=== PATIENT | male | born 1990 | race African-American/Black ===

== ENCOUNTER 2017-09-11 11:13 | Emergency (ER) | payer SELFPAY ==
[2017-09-11] MEDS: ALBUTEROL SULFATE 2.5 MG/3 ML NEBU. NEB (12:17)
== END 2017-09-11 13:00 | disposition home or self-care (01) ==
LOC: ER 11:13
DX: J45.901 Unspecified asthma with (acute) exacerbation (principal)
CPT/HCPCS: 94640; 99283; J7613

== ENCOUNTER 2020-02-23 05:12 | Emergency (ER) | payer SELFPAY ==
[~2020-02-23] VITALS: Ht 180.3 cm; Wt 63.6 kg
[~2020-02-23 05:12] MED LIST: ALBU2.5V8 INH; BENZ100C PO; FLUT1DIS3 IH; PRED50TA PO
[2020-02-23] MEDS ORDERED: NEOMY/BACITR/POLYMYXIN OINT PACKET. TP ONE (05:30)
[2020-02-23] MEDS ORDERED: LIDOCAINE 2%/EPI 1:100,000 20 ML VIAL. INJ ONE (05:30)
--- NOTE | 2020-02-23 05:56 | RAD ---
PQRS Compliance Statement: One or more of the following individualized dose reduction techniques were utilized for this examinat ion: 1. Automated exposure control 2. Adjustment of the mA and/or kV according to patient size 3. Use of iterative reconstruction technique CT head , maxillofacial and cervical spine without contrast 02/23/2020 5:19 AM INDICATION: Pain status post fall with facial trauma COMPARISON: None available TECHNIQUE: Multiple axial CT images of the head were obtained from skull base through the vertex with out intravenous contrast. Multiple axial CT images of the cervical spine and maxillofacial structures were obtained without intravenous contrast. Coronal and sagittal reformats are provided. FINDINGS: Head and maxillofacial: Ventricles, sulci and basal cisterns are within normal limits. There is no hydrocephalus. Ross-white matter differentiation is normal. There is no acute intracranial hemorrhage. There is no mass, mass e ffect or midline shift. Posterior fossa is normal in appearance. Osseous orbits are intact. Globes are spherical and contour. There is no lens dislocation. Extraocula r muscles are intact. No intraconal or extraconal mass is identified. Skull base is intact. There is a laceration along the nasal bridge with associated soft tissue swelling. Nasal bones are in tact. Nasal septum is predominantly midline. Paranasal sinuses are well aerated. No acute fracture of the paranasal sinuses is identified. Pterygoid plates are intact. Mild soft tissue swelling along th e forehead. Temporomandibular joints are well aligned. Mastoid air cells are well aerated. Middle ear cavities ar e well aerated. Visualized nasopharynx and oropharynx are intact. Maxilla and mandible are intact. Visualized dentition appear normal. Cervical spine: Alignment of the cervical spine is normal. Skull base is intact. Craniocervical junction is normal in appearance. Atlantoaxial articulation is normal. Vertebral body heights are maintained without evidence for acute fracture. Facet joints are within normal limits. No significant osseous neural foraminal stenosis. No significa nt osseous spinal canal stenosis. Transverse foramen are intact. There is no prevertebral soft tissue swelling. Thyroid gland is normal in appearance. Visualized port ions of the lung apices are normal without evidence for suspicious pulmonary nodule or infiltrate. IMPRESSION: 1. No acute intracranial hemorrhage. 2. No acute fracture of the maxillofacial structures. Soft tissue laceration along the nasal bridge o f the soft tissue swelling along the nasal bridge and forehead. 3. No acute fracture or malalignment of the cervical spine. Electronically signed by: Edita Littlejohn MD (02/23/2020 5:53 AM) [facility]BIE
--- NOTE | 2020-02-23 06:01 | PHYS DOC ---
Past Medical History Past Medical History: Asthma Past Medical History Limited secondary to alcohol intoxication Past Surgical History: No Surgical History Past Surgical History Limited secondary to alcohol intoxication Smoking Status: Current Every Day Smoker Additional Information: vape pen Alcohol Use: Occasionally Drug Use: None Social History Limited secondary to alcohol intoxication General Adult EDM: Chief Complaint: ALCOHOL INTOXICATION HPI: HPI: 29-year-old male presents via EMS with report of laceration to forehead which occurred after fall from standing position within the last hour. Patient reports EtOH abuse. Denies neck pain or back pain. Denies use of blood thinners. History of present illness limited secondary to alcohol intoxication. Review of Systems: Review of Systems: Constitutional: Denies fever or chills Musculoskeletal: Denies neck pain Integument: Reports laceration to forehead Neurologic: Denies headache, focal weakness or sensory changes Review of systems limited secondary to alcohol intoxication Current Medications: Current Medications Medications (Trade) Dose Ordered Sig/Minh Start Time Stop Time Status Last Admin Dose Admin Lidocaine/ Epinephrine (LIDOCAINE 2%-EPI 1:100,000 multi-dose) 20 ml 1X ONCE 02/23/20 05:30 02/23/20 05:31 DC 02/23/20 05:41 20 ML Neomycin/ Polymyxin/ Bacitracin (Triple Antibiotic Ointment) 1 pkt 1X ONCE 02/23/20 05:30 02/23/20 05:31 DC 02/23/20 05:41 1 PKT Allergies: Allergies: Allergies Coded Allergies Type Severity Reaction Last Updated Verified No Known Drug Allergies 08/27/15 No Physical Exam: PE: Constitutional: Well developed, well nourished, no acute distress, non-toxic appearance HENT: Normocephalic, 2.5 cm horizontal laceration to forehead just above bridge of nose Eyes: PERRL, EOMI, conjunctiva injected bilaterally, no discharge, horizontal nystagmus noted and looking to the right Neck: C-collar in place, supple Lungs & Thorax: No respiratory distress, equal chest rise and fall Abdomen: Soft, no tenderness; pelvis stable and nontender Skin: Warm, dry, no erythema, no rash Back: No tenderness, no CVA tenderness Extremities: No tenderness, ROM intact, no edema Neurologic: Alert and oriented, intoxicated, no focal deficits noted Psychologic: Affect normal, judgment normal Current Patient Data: Vital Signs: Vital Signs Date Time Temp Pulse Resp B/P (MAP) Pulse Ox O2 Delivery O2 Flow Rate FiO2 02/23/20 05:15 97.5 84 20 144/92 (109) 99 Room Air 97.5 EKG: EKG: [] Radiology/Procedures: Radiology/Procedures: PROCEDURE: CT HEAD, MAXILLOFACIAL, AND CERVICAL SPINE [facility] Compliance Statement: One or more of the following individualized dose reduction techniques were utilized for this examination: 1. Automated exposure control 2. Adjustment of the mA and/or kV according to patient size 3. Use of iterative reconstruction technique CT head , maxillofacial and cervical spine without contrast 02/23/2020 5:19 AM INDICATION: Pain status post fall with facial trauma COMPARISON: None available TECHNIQUE: Multiple axial CT images of the head were obtained from skull base through the vertex without intravenous contrast. Multiple axial CT images of the cervical spine and maxillofacial structures were obtained without intravenous contrast. Coronal and sagittal reformats are provided. FINDINGS: Head and maxillofacial: Ventricles, sulci and basal cisterns are within normal limits. There is no hydrocephalus. Ross-white matter differentiation is normal. There is no acute intracranial hemorrhage. There is no mass, mass effect or midline shift. Posterior fossa is normal in appearance. Osseous orbits are intact. Globes are spherical and contour. There is no lens dislocation. Extraocular muscles are intact. No intraconal or extraconal mass is identified. Skull base is intact. There is a laceration along the nasal bridge with associated soft tissue swelling. Nasal bones are intact. Nasal septum is predominantly midline. Paranasal sinuses are well aerated. No acute fracture of the paranasal sinuses is identified. Pterygoid plates are intact. Mild soft tissue swelling along the forehead. Temporomandibular joints are well aligned. Mastoid air cells are well aerated. Middle ear cavities are well aerated. Visualized nasopharynx and oropharynx are intact. Maxilla and mandible are intact. Visualized dentition appear normal. Cervical spine: Alignment of the cervical spine is normal. Skull base is intact. Craniocervical junction is normal in appearance. Atlantoaxial articulation is normal. Vertebral body heights are maintained without evidence for acute fracture. Facet joints are within normal limits. No significant osseous neural foraminal stenosis. No significant osseous spinal canal stenosis. Transverse foramen are i ntact. There is no prevertebral soft tissue swelling. Thyroid gland is normal in appearance. Visualized portions of the lung apices are normal without evidence for suspicious pulmonary nodule or infiltrate. IMPRESSION: 1. No acute intracranial hemorrhage. 2. No acute fracture of the maxillofacial structures. Soft tissue laceration along the nasal bridge of the soft tissue swelling along the nasal bridge and forehead. 3. No acute fracture or malalignment of the cervical spine. Electronically signed by: Edita Littlejohn MD (02/23/2020 5:53 AM) [facility] Course & Med Decision Making: Course & Med Decision Making Pertinent Imaging studies reviewed. (See chart for details) Patient presents via EMS status post mechanical fall with history of intoxication. Patient moving all extremities. No deformity noted. C-collar in place. Tetanus updated. CT head/cervical spine/maxillofacial without acute fracture or internal hemorrhage. Laceration repaired and dressed. C-collar cleared once clinically sober. Patient stable for discharge with outpatient follow-up with PCP. Discussed findings and plan with patient, who acknowledges understanding and agreement. Dragkaren Disclaimer: Tonio Disclaimer: This electronic medical record was generated, in whole or in part, using a voice recognition dictation system. Laceration/Wound Repair Laceration/Wound Repair : Wound Location: face Wound's Depth, Shape: linear Wound Length (cm): 2 (.5) Wound Explored: no foreign body removed Irrigated w/ Saline (ccs): 200 Anesthesia: Lidocaine w/ Epi (2%) Volume Anesthetic (ccs): 2 Wound Debrided: minimal Wound Repaired With: sutures Suture Size/Type: 6:0, nylon Number of Sutures: 5 Sterile Dressing Applied?: Yes Progress Verbal consent obtained. Time out performed. Hand hygiene utilized. Wound cleaned with ChloraPrep. Anesthesia obtained via a 30-gauge hypodermic needle with (1) mL's of lidocaine 2% with epinephrine. Copious irrigation performed. Wound well approximated with 6-0 Nylon x 5 simple interrupted sutures. Patient tolerated procedure well and without difficulty. Empiric antibiotic ointment applied prior to sterile dressing. Departure Departure Impression: Primary Impression: Fall Qualified Codes: W19.XXXA - Unspecified fall, initial encounter Additional Impressions: Facial laceration Qualified Codes: S01.81XA - Laceration without foreign body of other part of head, initial encounter Alcohol intoxication Qualified Codes: F10.920 - Alcohol use, unspecified with intoxication, u ncomplicated Disposition: 01 DC HOME SELF CARE/HOMELESS Condition: STABLE Referrals: NO PCP (PCP) Patient Instructions: Alcohol Intoxication, [id number], Laceration Care, Adult, [id number] Additional Instructions: Do not soak your wound. You may shower. Clean wound daily with soap and water. Change dressing 2 times daily. Use over the counter antibiotic ointment with each dressing change. Sutures need to be removed in 5 days. Present to your family doctor or local urgent care for removal. You may also present to the ED but it will be an additional visit/charge. After suture removal you may use Vitamin E ointment to soften the wound and prevent scarring. ASUNCION RANDALL DO Feb 23, 2020 06:00
[2020-02-23 06:06] VITALS: BP 128/82
[2020-02-23] MEDS ORDERED: DIPH,PERTUSS(ACELL),TET VAC/PF 0.5 ML SYRINGE. VAX IM ONE (06:30)
== END 2020-02-23 06:35 | disposition home or self-care (01) ==
LOC: ER 05:12
DX: S01.81XA Laceration without foreign body of other part of head, initial encounter (principal); F10.229 Alcohol dependence with intoxication, unspecified; R60.0 Localized edema; J45.909 Unspecified asthma, uncomplicated; F17.200 Nicotine dependence, unspecified, uncomplicated; W18.39XA Other fall on same level, initial encounter; Y93.89 Activity, other specified; Y92.89 Other specified places as the place of occurrence of the external cause; Y99.8 Other external cause status
CPT/HCPCS: 12011; 70450; 70486; 72125; 90471; 90715; 99285; J3490

== ENCOUNTER 2021-07-17 20:04 | Emergency (ER) | payer SELFPAY ==
[~2021-07-17] VITALS: Ht 157.5 cm; Wt 65.0 kg
[2021-07-17] MEDS ORDERED: DIPHTH,PERTUSS(ACELL),TET TOX 0.5 ML DISP.SYRIN. VAX IM ONE (21:15)
[2021-07-17] MEDS ORDERED: LIDOCAINE 1%/EPI 1:100,000 20 ML VIAL. INJ ONE (21:15)
[2021-07-17 22:00] VITALS: BP 132/78
[2021-07-17] MEDS ORDERED: CEPH500C PO (22:04)
--- NOTE | 2021-07-17 22:04 | PHYS DOC ---
Past Medical History Past Medical History: Asthma Past Surgical History: No Surgical History Smoking Status: Current Every Day Smoker Alcohol Use: Occasionally Drug Use: None General Adult EDM: Chief Complaint: LACERATION/AVULSION HPI: HPI: Patient is a 30 year old male who presents with lacerations to his right elbow. Patient states that he had some alcohol today, and when he went to go to bed, he hit his elbow on a broken glass on his bed stand. Patient has not had a tetanus vaccine ever in his lifetime. Patient denies any other injuries including head trauma. He has no other complaints at this time. Review of Systems: Review of Systems: ROS negative or noncontributory except as mentioned in HPI. Heart Score: C/O Chest Pain: No Current Medications: Current Medications Medications (Trade) Dose Ordered Sig/Minh Start Time Stop Time Status Last Admin Dose Admin Diphtheria/ Tetanus/Acell Pertussis (Boostrix) 0.5 ml ONCE ONCE 07/17/21 21:15 07/17/21 21:16 DC Lidocaine/ Epinephrine (LIDOCAINE 1%-EPI 1:100,000 Multi-Dose) 20 ml 1X ONCE 07/17/21 21:15 07/17/21 21:16 DC 07/17/21 21:10 20 ML Allergies: Allergies: Allergies Coded Allergies Type Severity Reaction Last Updated Verified No Known Drug Allergies 08/27/15 No Physical Exam: PE: Constitutional: Well developed, well nourished, no acute distress, non-toxic appearance. HENT: Normocephalic, atraumatic, bilateral external ears normal, nose normal. Eyes: EOMI, conjunctiva normal, no discharge. Neck: Normal range of motion, no tenderness, supple, no stridor. Skin: Approximately 3 cm laceration noted on the posterior aspect of the right forearm just distal to the elbow with a smaller 1.2 cm laceration at a perpendicular angle to the larger one, hemostasis not achieved on exam. Skin otherwise warm, dry, no erythema, no rash. Extremities: See above for laceration. Mild tenderness surrounding laceration. Extremities otherwise no tenderness, no cyanosis, no clubbing, ROM intact, no edema. Neurologic: Alert and oriented x4, normal motor function, normal sensory function, no focal deficits noted. Current Patient Data: Vital Signs: Vital Signs Date Time Temp Pulse Resp B/P (MAP) Pulse Ox O2 Delivery O2 Flow Rate FiO2 07/17/21 22:00 78 18 132/78 (96) 99 07/17/21 20:08 98.0 98 18 149/82 (104) 99 Room Air 98.0 Course & Med Decision Making: Course & Med Decision Making Pertinent Labs and Imaging studies reviewed. (See chart for details) Patient is a 30-year-old male who presents with 2 lacerations to the posterior aspect of his distal right elbow/proximal forearm. Per nursing staff, patient refused tetanus vaccination. I spoke to him about risks versus benefits myself as well, and he continues to refuse. When I initially went to the room to examine and close patient's wounds, he was not in the room. I returned later, the patient was present. Wounds were closed as noted below. Patient was provided with prescription for Keflex, as he was somewhat disheveled and I would like to prevent infection. Patient was given wound care instruction and return precautions. He understands and is agreeable to discharge plan. Dragon Disclaimer: Dragon Disclaimer: This electronic medical record was generated, in whole or in part, using a voice recognition dictation system. Laceration Repair Lac Repair Indication: Lacerations to right forearm/elbow Procedure: The patient was placed in the appropriate position and anesthesia around the lacerations was 1% lidocaine with epinephrine. The area was then cleansed with copious sterile saline. The 3 cm laceration was closed with 5 simple interrupted 4-0 nylon sutures. The smaller laceration was closed with 2 simple interrupted 4-0 nylon sutures. The wound area was then dressed with nonadhesive gauze. Total repaired wound length: Approximately 4.2 cm. Other Items: The patient tolerated the procedure very well. Complications: None. Departure Departure Impression: Primary Impression: Laceration of right elbow without complication Qualified Codes: S51.011A - Laceration without foreign body of right elbow, initial encounter Disposition: HOME / SELF CARE / HOMELESS Condition: IMPROVED Referrals: TK KING MD (PCP) Patient Instructions: Sutured Wound Care, [id number] Additional Instructions: EMERGENCY DEPARTMENT GENERAL DISCHARGE INSTRUCTIONS Thank you for coming to [facility] Emergency Department (ED) today and trusting us with you care. We trust that you had a positive experience in our Emergency Department. If you wish to speak to the department management, you may call the director at . YOUR FOLLOW UP INSTRUCTIONS ARE FOLLOWS: 1. Follow up with your primary care doctor. If you do not have a primary doctor, please ask for a resource list of physicians or clinics that may be able to assist you with follow up care. 2. The emergency provider has interpreted your imaging studies, if any were ordered. The radiology therapeutic recreation specialist also reviewed them. If there is a change in the findings, you will be notified in 48 hours when at all possible. 3. If a lab test or culture has been done, your results will be reviewed and you will be notified if you need a change in treatment. 4. Follow instructions verbalized to you and refer to the printouts if needed. ADDITIONAL INSTRUCTIONS AND INFORMATION: 1. Your care today has been supervised by a physician who is specially trained in emergency care. Many problems require more than one evaluation for a complete diagnosis and treatment. We recommend that you schedule your follow up appointment as recommended to ensure complete treatment of you illness or injury. If you are unable to obtain follow up care and continue to have a problem, or if your condition worsens, we recommend that you return to the ED. 2. We are not able to safely determine your condition over the phone nor are we able to give sound medical advice over the phone. For these safety reasons, if you call for medical advice we will ask you to come to the ED for further evaluation. 3. If you have any questions regarding these discharge instructions please call the ED at . SAFETY INFORMATION: In the interest of safety, wellness, and injury prevention; we encourage you to wear your seat belt, if you smoke; quite smoking, and we encourage family to use a protective helmet for bicycling and other sporting events that present an increased risk for head injury. IF YOUR SYMPTOMS WORSEN OR NEW SYMPTOMS DEVELOP, OR YOU HAVE CONCERNS ABOUT YOUR CONDITION; OR IF YOUR CONDITION WORSENS WHILE YOU ARE WAITING FOR YOUR FOLLOW UP APPOINTMENT; EITHER CONTACT YOUR PRIMARY CARE DOCTOR, THE PHYSICIAN WHOSE NAME AND NUMBER YOU WERE GIVEN, OR RETURN TO THE ED IMMEDIATELY. Scripts Cephalexin (KEFLEX) 500 Mg Capsule 1 CAP PO BID for 5 Days, #10 CAP Prov: TONYA ESCOBAR 07/17/21 TONYA ESCOBAR July 17, 2021 22:04
== END 2021-07-17 22:10 | disposition home or self-care (01) ==
LOC: ER 20:04
DX: S51.011A Laceration without foreign body of right elbow, initial encounter (principal); J45.909 Unspecified asthma, uncomplicated; F17.200 Nicotine dependence, unspecified, uncomplicated; W25.XXXA Contact with sharp glass, initial encounter; Y93.89 Activity, other specified; Y92.89 Other specified places as the place of occurrence of the external cause; Y99.8 Other external cause status
CPT/HCPCS: 12002; 99283; J3490